=== PATIENT | female | born 1970 | race Caucasian/White ===

== ENCOUNTER 2016-05-13 20:17 | Emergency (ER) | payer OTHER ==
--- NOTE | 2016-05-13 22:03 | DIAGNOSTIC IMAGING REPORT ---
PROCEDURE: XR CHEST 2 VIEW INDICATION: COUGH TECHNIQUE: PA and lateral views. COMPARISON: Compared to chest x-ray on 09/27/2013. FINDINGS: Lungs are clear. Heart and mediastinum are normal. Thorax is normal. IMPRESSION: 1. Negative chest.
--- NOTE | 2016-05-13 22:28 | ED ORDER SUMMARY ---
..... Patient: FRANCISCO MUNOZ OrderSheet [facility] VisitID: [id number] [place] [address] 45y, F Registration Date/Time: 05/13/2016 ORDER SHEET Weight: 77.1 kg (stated) Allergies: No Known Drug Allergy GENERAL ORDERS: EKG - ER Stat (20:35 05/13/2016 Chet R.N. per protocol) (Ack 20:44 NHouse ER Tech1) (20:48 LMuller) Chest 2V Urgent (20:37 05/13/2016 EKoroleva P.A.-C) (Ack 20:44 NHouse ER Tech1) (20:49 LMuller) CBC w Diff Urgent (20:58 05/13/2016 EKoroleva P.A.-C) (Ack 21:28 NHouse ER Tech1) (21:43 JQuivey R.N.) BMP Urgent (20:58 05/13/2016 EKoroleva P.A.-C) (Ack 21:28 NHouse ER Tech1) (21:43 JQuivey R.N.) Troponin-I Urgent (22:02 05/13/2016 EKoroleva P.A.-C) (22:07 LMuller) MEDICATION ORDERS: Levaquin PO 750 mg (NOW) (22:27 05/13/2016 EKoroleva P.A.-C) (Ack 22:56 JQuivey R.N.) Tylenol w Codeine PO 2 tabs (HIGH ALERT MEDICATION, NOW) (22:27 05/13/2016 EKoroleva P.A.-C) (Ack 22:56 JQuivey R.N.) IV FLUIDS: ORDER SHEET NOTES: [Electronically signed by Marek Rosales R.N. (02:23 05/14/2016)] [Electronically signed by Sharon Armas P.A.-C (13:45 05/14/2016)] [Electronically locked/signed by Marek Rosales R.N. (02:23 05/14/2016)]
--- NOTE | 2016-05-13 22:28 | ED NURSING NOTES ---
Clinical Report - Nurses [facility] [address] [place] [address] 05/13/2016 20:19 Patient: FRANCISCO MUNOZ TRIAGE Triage time 20:May 13 2016. Acuity: LEVEL 3. Chief Complaint: CHEST PAIN and DISCOMFORT. Alert. No acute distress. --20:35 Tana Nuñez R.N. 20:29 05/13/16. BP: 136/100. HR: 95. RR: 18. O2 saturation: 96%. Temp: 98.3 F. Pain level now 8/10. --20:35 Tana Nuñez R.N. Weight: 77.1 kg stated. Height/Length: 66 inches Per Patient. BMI: 27.4. --20:28 Tana Nuñez R.N. Medications Ambien Oral 10 mg, daily. Amitriptyline HCl Oral 50 mg, daily. --20:32 Tana Nuñez R.N. Adderall Oral. --20:33 Tana Nuñez R.N. Medication/allergy information source: the patient. --20:35 Tana Nuñez R.N. Allergies No Known Drug Allergy. --20:32 Tana Nuñez R.N. History Arrived by private vehicle, and accompanied by friend. Primary physician (Francisco Sánchez). ( Pt had Pneumonia. Dx 11 days ago via [facility], took Zpack. No relief. Called to follow up however PCP could not get her in. Would not renew the Z Pack without being seen again. Pt here because she has chest discomfort with breathing.). Onset. (11 days). Treatment STRAPPING MACHINE TENDER: None. SOCIAL HX: Smoker- current status unknown. History of drug use: marijuana. No alcohol use. NUTRITIONAL RISK ASSESSMENT: The nutritional risk assessment revealed no deficiencies. --20:35 Tana Nuñez R.N. PROBLEMS: Cancer. Tetanus Status. Contusion. Abrasion(s). Atypical Chest Pain. Chest Pain. Hypotension. Immunizations. LNMP - Last Normal Menstrual Period. Abdominal Pain. Pneumonia. Substance Abuse. Hearing Loss. --20:33 Tana Nuñez R.N. ADDITIONAL SURGERIES: Head. --20:33 Tana Nuñez R.N. Interventions ID band on patient. To room. --20:35 Tana Nuñez R.N. PHYSICAL ASSESSMENT Ambulatory to room. GENERAL / NEURO / PSYCH: Appears anxious. SKIN: Skin is warm and dry. --20:36 Tana Nuñez R.N. 21:21. To room via wheelchair. GENERAL / NEURO / PSYCH: Alert. Oriented X 4. HEENT: Mucous membranes are pink. RESPIRATORY: Respirations not labored. SKIN: Skin is warm and dry. Normal skin turgor. --21:21 Marek Rosales R.N. NURSING PROGRESS NOTES ( EKG in triage room.). --20:36 Tana Nuñez R.N. EKG time: (2048). EKG was performed by a tech and shown to the PA. --20:49 Thais Foley ( patient taken to x-ray by tech). --20:49 Thais Foley The patient is calm and resting quietly. RESPIRATORY: No respiratory distress. --21:23 Marek Rosales R.N. 21:21 05/13/16. BP: 113/76. HR: 77. RR: 16. O2 saturation: 98%. Pain level now: 10. --21:23 Marek Rosales R.N. 21:30. Patient ID band checked for patient name and birthdate: patient confirmed. Blood samples drawn from the right wrist with syringe by nurse ; labeled in presence of the patient and sent to lab: rainbow set. --21:31 Marek Rosales R.N. 23:02. The patient is calm and resting quietly. RESPIRATORY: No respiratory distress. SKIN: Skin is warm and dry. Skin color within normal limits. --02:22 Marek Rosales R.N. DISPOSITION / DISCHARGE Departure time: 23:05. Condition at departure: stable. No learning barriers present. Discharge instructions provided and reviewed with the patient. Reviewed medication(s) side effects, precautions, dosing and course information. Prescription(s) given to the patient. Patient verbalized understanding. Written instructions provided in Croatian. The patient was discharged home and accompanied by plug maker. She left the Emergency Department ambulatory and via private vehicle. Genetic Counselor driving. FALL RISK ASSESSMENT: Fall risk assessment completed. No fall risk identified. --23:05 Marek Rosales R.N. 22:58 05/13/16. BP: 110/80. --23:05 Marek Rosales R.N. 22:58 05/13/16. HR: 72. RR: 17. O2 saturation: 97% on room air. Pain level now: 10/12. --23:06 Marek Rosales R.N. Locked/Released at 05/14/2016 2:23 by Marek Rosales R.N.
--- NOTE | 2016-05-13 22:28 | ED NURSING NOTES ---
Clinical Report - Nurses [facility] [address] [place] [address] 05/13/2016 20:19 Patient: FRANCISCO MUNOZ TRIAGE Triage time 20:May 13 2016. Acuity: LEVEL 3. Chief Complaint: CHEST PAIN and DISCOMFORT. Alert. No acute distress. --20:35 Tana Nuñez R.N. 20:29 05/13/16. BP: 136/100. HR: 95. RR: 18. O2 saturation: 96%. Temp: 98.3 F. Pain level now 8/10. --20:35 Tana Nuñez R.N. Weight: 77.1 kg stated. Height/Length: 66 inches Per Patient. BMI: 27.4. --20:28 Tana Nuñez R.N. Medications Ambien Oral 10 mg, daily. Amitriptyline HCl Oral 50 mg, daily. --20:32 Tana Nuñez R.N. Adderall Oral. --20:33 Tana Nuñez R.N. Medication/allergy information source: the patient. --20:35 Tana Nuñez R.N. Allergies No Known Drug Allergy. --20:32 Tana Nuñez R.N. History Arrived by private vehicle, and accompanied by friend. Primary physician (Francisco Sánchez). ( Pt had Pneumonia. Dx 11 days ago via [facility], took Zpack. No relief. Called to follow up however PCP could not get her in. Would not renew the Z Pack without being seen again. Pt here because she has chest discomfort with breathing.). Onset. (11 days). Treatment HEALTHCARE ADMINISTRATOR: None. SOCIAL HX: Smoker- current status unknown. History of drug use: marijuana. No alcohol use. NUTRITIONAL RISK ASSESSMENT: The nutritional risk assessment revealed no deficiencies. --20:35 Tana Nuñez R.N. PROBLEMS: Cancer. Tetanus Status. Contusion. Abrasion(s). Atypical Chest Pain. Chest Pain. Hypotension. Immunizations. LNMP - Last Normal Menstrual Period. Abdominal Pain. Pneumonia. Substance Abuse. Hearing Loss. --20:33 Tana Nuñez R.N. ADDITIONAL SURGERIES: Head. --20:33 Tana Nuñez R.N. Interventions ID band on patient. To room. --20:35 Tana Nuñez R.N. PHYSICAL ASSESSMENT Ambulatory to room. GENERAL / NEURO / PSYCH: Appears anxious. SKIN: Skin is warm and dry. --20:36 Tana Nuñez R.N. 21:21. To room via wheelchair. GENERAL / NEURO / PSYCH: Alert. Oriented X 4. HEENT: Mucous membranes are pink. RESPIRATORY: Respirations not labored. SKIN: Skin is warm and dry. Normal skin turgor. --21:21 Marek Rosales R.N. NURSING PROGRESS NOTES ( EKG in triage room.). --20:36 Tana Nuñez R.N. EKG time: (2048). EKG was performed by a tech and shown to the PA. --20:49 Thais Foley ( patient taken to x-ray by tech). --20:49 Thais Foley The patient is calm and resting quietly. RESPIRATORY: No respiratory distress. --21:23 Marek Rosales R.N. 21:21 05/13/16. BP: 113/76. HR: 77. RR: 16. O2 saturation: 98%. Pain level now: 10. --21:23 Marek Rosales R.N. 21:30. Patient ID band checked for patient name and birthdate: patient confirmed. Blood samples drawn from the right wrist with syringe by nurse ; labeled in presence of the patient and sent to lab: rainbow set. --21:31 Marek Rosales R.N. 23:02. The patient is calm and resting quietly. RESPIRATORY: No respiratory distress. SKIN: Skin is warm and dry. Skin color within normal limits. --02:22 Marek Rosales R.N. DISPOSITION / DISCHARGE Departure time: 23:05. Condition at departure: stable. No learning barriers present. Discharge instructions provided and reviewed with the patient. Reviewed medication(s) side effects, precautions, dosing and course information. Prescription(s) given to the patient. Patient verbalized understanding. Written instructions provided in Japanese. The patient was discharged home and accompanied by gymnastics instructor. She left the Emergency Department ambulatory and via private vehicle. International Bank Manager driving. FALL RISK ASSESSMENT: Fall risk assessment completed. No fall risk identified. --23:05 Marek Rosales R.N. 22:58 05/13/16. BP: 110/80. --23:05 Marek Rosales R.N. 22:58 05/13/16. HR: 72. RR: 17. O2 saturation: 97% on room air. Pain level now: 10/12. --23:06 Marek Rosales R.N. Locked/Released at 05/14/2016 2:23 by Marek Rosales R.N.
--- NOTE | 2016-05-13 22:28 | ED CLINICAL REPORT ---
Clinical Report - Physicians/Mid Levels [facility] [address] [place] [address] 05/13/2016 20:19 Patient: FRANCISCO MUNOZ Time Seen: 20:42 May 13 2016. Arrived- By private vehicle. Historian- patient. HISTORY OF PRESENT ILLNESS Chief Complaint: COUGH. This started 11 days and is still present. The patient has had a cough. (consistent illness for the last 11 days, with cough, chills, pain to the right side of the chest ongoing. Patient with recent treatment of azithromycin completed such yesterday, was supposed to continue taking such, however did not have a prescription for, and unable to see her primary care provider this week. No new symptoms. However no real improvement of symptoms either.). REVIEW OF SYSTEMS No skin rash or enlarged lymph nodes. All systems otherwise negative, except as recorded above. SOCIAL HISTORY History of drug use: marijuana. No alcohol use. ADDITIONAL NOTES The nursing notes have been reviewed. PHYSICAL EXAM Vital Signs: 05/13/2016 20:29 BP: 136/100. HR: 95. RR: 18. O2 saturation: 96%. Temp: 98.3 F. Appearance: Alert. ENT: Ears normal. Pharynx normal. Uvula midline. Neck: Normal inspection. No lymphadenopathy. CVS: Normal heart rate and rhythm. Heart sounds normal. Respiratory: No respiratory distress. Rhonchi present. Abdomen: Soft. Back: Normal inspection. No CVA tenderness. Skin: Skin warm. Normal skin color. Neuro: Oriented X 3. LABS, X-RAYS, AND EKG EKG: EKG time: (2048). No acute process. No acute ischemia. Normal EKG. Rate: 83. Normal P waves. Normal JULIANA. Normal QRS complex. Normal axis. Normal ST and T waves. The study has been interpreted contemporaneously. The EKG appears to be a good tracing. Chest X-ray: (IMPRESSION: 1. Negative chest. Electronically Final signed by:Ti Orozco MD 05/13/2016 10:01:56 PM). Laboratory Tests: CBC w Diff: (REYNOLD: 05/13/2016 21:30) ( MsgRcvd 05/13/2016 21:43) Final results Test Result Flag Units (Reference) WHITE BLOOD COUNT 8.8 K/uL (4.5-11.5) RED BLOOD COUNT 4.51 M/uL (4.00-5.20) HEMOGLOBIN 13.3 gm/dL (12.0-16.0) HEMATOCRIT 40.5 % (36.0-46.0) MEAN CELL VOLUME 90 fL (80-100) MEAN CORPUSCULAR HGB 30 pg (26-34) MEAN CORPUSCULAR HGB CONC 33 g/dL (31-37) RED CELL DISTRIBUTION WIDTH 13.3 % (11.6-14.8) PLATELET COUNT 349 K/uL (150-400) NEUTROPHIL % 55.4 % (50-75) LYMPH % 35.3 % (25-40) MONO % 8.2 % (3-14) EOSINOPHIL % 0 % (0-4) BASOPHIL % 1.1 % (0-2) BMP: (REYNOLD: 05/13/2016 21:30) ( MsgRcvd 05/13/2016 21:50) Final results Test Result Flag Units (Reference) GLUCOSE 92 mg/dL (70-110) BUN 15 mg/dL (7-18) CREATININE 0.7 mg/dL (0.6-1.3) Estimated GFR >60 mL/min Estimated GFR- >60 mL/min Note: Persistent reduction over 3 months in eGFR<60 mL/min/1.73 m2 defines CKD. Patients with eGFR values>=60 mL/min/1.73 m2 may also have CKD if evidence ofpersistent proteinuria. Additional information may be foundat www.kidney.org. SODIUM 141 mmol/L (136-145) POTASSIUM 3.9 mmol/L (3.5-5.1) CHLORIDE 107 mmol/L (98-107) CARBON DIOXIDE 28 mmol/L (21-32) CALCIUM 8.7 mg/dL (8.5-10.1) . PROGRESS AND PROCEDURES Course of Care: 05/13/2016 22:58 BP: 110/80. 05/13/2016 22:58 HR: 72. RR: 17. O2 saturation: 97%. Pain level now: 10/12. 05/13/2016 21:21 BP: 113/76. HR: 77. RR: 16. O2 saturation: 98%. Pain level now: 11/11. Patient is stable. Physical exam findings are improved. Symptoms better. Patient/family counseled. Disposition: Discharged. CLINICAL IMPRESSION Acute bronchitis. INSTRUCTIONS Drink plenty of fluids. Prescription Medications: Robitussin A-C cough syrup take one (1) teaspoon orally every 6 hours as needed for cough for 3 days. Dispense sixty (60) mL. No refill. Substitution is permissible. Levaquin 750 mg: take 1 tab orally every day for 6 days. No refills. Substitution is permissible. (start this on the ) Motrin 800 mg tablets: take 1 tablet orally every 8 hours for 3 days, as needed for pain. Dispense ten (10). No refill. Substitution is permissible. Follow-up: Follow up with your doctor as needed. (Electronically signed by Sharon Armas P.A.-C 05/14/2016 13:45)
--- NOTE | 2016-05-13 22:28 | ED ORDER SUMMARY ---
..... Patient: FRANCISCO MUNOZ OrderSheet [facility] VisitID: [id number] [place] [address] 45y, F Registration Date/Time: 05/13/2016 ORDER SHEET Weight: 77.1 kg (stated) Allergies: No Known Drug Allergy GENERAL ORDERS: EKG - ER Stat (20:35 05/13/2016 Chet R.N. per protocol) (Ack 20:44 NHouse ER Tech1) (20:48 LMuller) Chest 2V Urgent (20:37 05/13/2016 EKoroleva P.A.-C) (Ack 20:44 NHouse ER Tech1) (20:49 LMuller) CBC w Diff Urgent (20:58 05/13/2016 EKoroleva P.A.-C) (Ack 21:28 NHouse ER Tech1) (21:43 JQuivey R.N.) BMP Urgent (20:58 05/13/2016 EKoroleva P.A.-C) (Ack 21:28 NHouse ER Tech1) (21:43 JQuivey R.N.) Troponin-I Urgent (22:02 05/13/2016 EKoroleva P.A.-C) (22:07 LMuller) MEDICATION ORDERS: Levaquin PO 750 mg (NOW) (22:27 05/13/2016 EKoroleva P.A.-C) (Ack 22:56 JQuivey R.N.) Tylenol w Codeine PO 2 tabs (HIGH ALERT MEDICATION, NOW) (22:27 05/13/2016 EKoroleva P.A.-C) (Ack 22:56 JQuivey R.N.) IV FLUIDS: ORDER SHEET NOTES: [Electronically signed by Marek Rosales R.N. (02:23 05/14/2016)] [Electronically signed by Sharon Armas P.A.-C (13:45 05/14/2016)] [Electronically locked/signed by Marek Rosales R.N. (02:23 05/14/2016)]
--- NOTE | 2016-05-14 13:45 | ED MED RECONCILIATION SUMMARY ---
Patient: FRANCISCO MUNOZ Medication Reconciliation Report [facility] VisitID: [id number] [place] [address] 45y, F Registration Date/Time: 05/13/2016 Weight: 77.1 kg Height/Length: 66 in. BMI: 27.4 ALLERGIES: No Known Drug Allergy The patient's Home Medications are listed below: THE FOLLOWING MEDICATIONS NEED TO BE RECONCILED: Adderall Oral Ambien Oral 10 mg, daily Amitriptyline HCl Oral 50 mg, daily The source(s) of the original Home Medication information: patient The following Medications were given to the patient in the Emergency Department: None. The following Medications were prescribed to the patient: Robitussin A-C cough syrup take one (1) teaspoon orally every 6 hours as needed for cough for 3 days. Dispense sixty (60) mL. No refill. Substitution is permissible. -- Sharon Armas, P.A.-[place] Levaquin 750 mg: take 1 tab orally every day for 6 days. No refills. Substitution is permissible.(start this on the ) -- Sharon Armas, P.A.-[place] Motrin 800 mg tablets: take 1 tablet orally every 8 hours for 3 days, as needed for pain. Dispense ten (10). No refill. Substitution is permissible. -- Sharon Armas P.A.-C
--- NOTE | 2016-05-14 13:45 | ED MAR SUMMARY ---
..... Medication Administration Record [facility] [address] [place] [address] Patient: FRANCISCO MUNOZ Visit ID: [id number] 45y, F Weight: 77.1 kg Height/Length: 66 in BMI: 27.4 ALLERGIES: No Known Drug Allergy
--- NOTE | 2016-05-14 13:45 | ED MAR SUMMARY ---
..... Medication Administration Record [facility] [address] [place] [address] Patient: FRANCISCO MUNOZ Visit ID: [id number] 45y, F Weight: 77.1 kg Height/Length: 66 in BMI: 27.4 ALLERGIES: No Known Drug Allergy
--- NOTE | 2016-05-14 13:45 | ED DISCHARGE INSTRUCTIONS ---
Patient: FRANCISCO MUNOZ General Instructions [facility] VisitID: [id number] [place] [address] 45y, F Registration Date/Time: 05/13/2016 Acute bronchitis. INSTRUCTIONS Drink plenty of fluids. Prescription Medications: Robitussin A-C cough syrup take one (1) teaspoon orally every 6 hours as needed for cough for 3 days. Dispense sixty (60) mL. No refill. Substitution is permissible. Levaquin 750 mg: take 1 tab orally every day for 6 days. No refills. Substitution is permissible. (start this on the ) Motrin 800 mg tablets: take 1 tablet orally every 8 hours for 3 days, as needed for pain. Dispense ten (10). No refill. Substitution is permissible. Follow-up: Follow up with your doctor as needed. ADDITIONAL INFORMATION Bronchitis (Adult: Abx Tx) BRONCHITIS is an infection of the air passages (bronchial tubes). It often occurs during the common cold. Symptoms include cough with mucus (phlegm) and low-grade fever. Bronchitis usually lasts 7-14 days. Mild cases can be treated with simple home remedies. More severe infection is treated with an antibiotic. Home Care: If symptoms are severe, rest at home for the first 2-3 days. When you resume activity, don't let yourself get too tired. Do not smoke. Avoid being exposed to the smoke of others. You may use acetaminophen (Tylenol) or ibuprofen (Motrin, Advil) to control fever or pain, unless another medicine was prescribed for this. [NOTE: If you have chronic liver or kidney disease or ever had a stomach ulcer or GI bleeding, talk with your doctor before using these medicines.] Your appetite may be poor, so a light diet is fine. Avoid dehydration by drinking 6-8 glasses of fluids per day (water, soft, drinks, juices, tea, soup, etc.). Extra fluids will help loosen secretions in the lungs. Tcey-kzc-yksvbpm cough medicines that containdextromethorphan(such as Robitussin DM) and decongestants (Actifed or Sudafed) may help relieve cough and congestion. [NOTE: Do not use decongestants if you have high blood pressure.] Finish all antibiotic medicine, even if you are feeling better after only a few days. Follow Up with your doctor or as directed if you dont start to feel better after three days. [NOTE: If you are age 65 or older, or if you have chronic asthma or COPD, we recommend a PNEUMOCOCCAL VACCINATION every five years and a yearly INFLUENZAVACCINATION (FLU-SHOT) every . Ask your doctor about this. If you had an X-ray, a radiologist will review it. You will be notified of any new findings that may affect your care.] Get Prompt Medical Attention if any of the following occur: Fever over 100.4F (38.0C) for more than three days Trouble breathing, wheezing or pain with breathing Coughing up blood or increased amounts of colored sputum Weakness, drowsiness, headache, facial pain, ear pain or a stiff neck Levofloxacin Oral tablet What is this medicine? LEVOFLOXACIN (liz wheat) is a quinolone antibiotic. It is used to treat certain kinds of bacterial infections. It will not work for colds, flu, or other viral infections. How should I use this medicine? Take this medicine by mouth with a full glass of water. Follow the directions on the prescription label. This medicine can be taken with or without food. Take your medicine at regular intervals. Do not take your medicine more often than directed. Do not skip doses or stop your medicine early even if you feel better. Do not stop taking except on your doctor's advice. A special MedGuide will be given to you by the pharmacist with each prescription and refill. Be sure to read this information carefully each time. Talk to your grain drier operator regarding the use of this medicine in children. While this drug may be prescribed for children as young as 6 months for selected conditions, precautions do apply. What side effects may I notice from receiving this medicine? Side effects that you should report to your doctor or health daycare provider as soon as possible: -allergic reactions like skin rash or hives, swelling of the face, lips, or tongue -changes in vision -confusion, nightmares or hallucinations -difficulty breathing -irregular heartbeat, chest pain -joint, muscle or tendon pain -pain or difficulty passing urine -persistent headache with or without blurred vision -redness, blistering, peeling or loosening of the skin, including inside the mouth -seizures -unusual pain, numbness, tingling, or weakness -vaginal irritation, discharge Side effects that usually do not require medical attention (report to your doctor or health daycare provider if they continue or are bothersome): -diarrhea -dry mouth -headache -stomach upset, nausea -trouble sleeping What may interact with this medicine? Do not take this medicine with any of the following medications: - arsenic trioxide - chloroquine - droperidol - medicines for irregular heart rhythm like amiodarone, disopyramide, dofetilide, flecainide, quinidine, procainamide, sotalol - some medicines for depression or mental problems like phenothiazines, pimozide, and ziprasidone This medicine may also interact with the following medications: - amoxapine -antacids - cisapride - dairy products - didanosine (ddI) buffered tablets or powder - haloperidol - multivitamins -NSAIDS, medicines for pain and inflammation, like ibuprofen or naproxen - retinoid products like tretinoin or isotretinoin - risperidone - some other antibiotics like clarithromycin or erythromycin - sucralfate - theophylline - warfarin What if I miss a dose? If you miss a dose, take it as soon as you remember. If it is almost time for your next dose, take only that dose. Do not take double or extra doses. Where should I keep my medicine? Keep out of the reach of children. Store at room temperature between 15 and 30 degrees C (59 and 86 degrees F). Keep in a tightly closed container. Throw away any unused medicine after the expiration date. What should I tell my health care provider before I take this medicine? They need to know if you have any of these conditions: cerebral disease irregular heartbeat kidney disease seizure disorder an unusual or allergic reaction to levofloxacin, other antibiotics or medicines, foods, dyes, or preservatives or trying to get breast-feeding What should I watch for while using this medicine? Tell your doctor or health daycare provider if your symptoms do not improve or if they get worse. Drink several glasses of water a day and cut down on drinks that contain caffeine. You must not get dehydrated while taking this medicine. You may get drowsy or dizzy. Do not drive, use machinery, or do anything that needs mental alertness until you know how this medicine affects you. Do not sit or stand up quickly, especially if you are an older patient. This reduces the risk of dizzy or fainting spells. This medicine can make you more sensitive to the sun. Keep out of the sun. If you cannot avoid being in the sun, wear protective clothing and use a sunscreen. Do not use sun lamps or tanning beds/booths. Contact your doctor if you get a sunburn. If you are a diabetic monitor your blood glucose carefully. If you get an unusual reading stop taking this medicine and call your doctor right away. Do not treat diarrhea with [id number] products. Contact your doctor if you have diarrhea that lasts more than 2 days or if the diarrhea is severe and watery. Avoid antacids, calcium, iron, and zinc products for 2 hours before and 2 hours after taking a dose of this medicine. You have been given the following additional information: Bronchitis, Antiobiotic Treatment (Adult) Levofloxacin Oral tablet (Electronically signed by Sharon Armas P.A.-C 05/14/2016 13:45)
--- NOTE | 2016-05-14 13:45 | ED DISCHARGE INSTRUCTIONS ---
Patient: FRANCISCO MUNOZ General Instructions [facility] VisitID: [id number] [place] [address] 45y, F Registration Date/Time: 05/13/2016 Acute bronchitis. INSTRUCTIONS Drink plenty of fluids. Prescription Medications: Robitussin A-C cough syrup take one (1) teaspoon orally every 6 hours as needed for cough for 3 days. Dispense sixty (60) mL. No refill. Substitution is permissible. Levaquin 750 mg: take 1 tab orally every day for 6 days. No refills. Substitution is permissible. (start this on the ) Motrin 800 mg tablets: take 1 tablet orally every 8 hours for 3 days, as needed for pain. Dispense ten (10). No refill. Substitution is permissible. Follow-up: Follow up with your doctor as needed. ADDITIONAL INFORMATION Bronchitis (Adult: Abx Tx) BRONCHITIS is an infection of the air passages (bronchial tubes). It often occurs during the common cold. Symptoms include cough with mucus (phlegm) and low-grade fever. Bronchitis usually lasts 7-14 days. Mild cases can be treated with simple home remedies. More severe infection is treated with an antibiotic. Home Care: If symptoms are severe, rest at home for the first 2-3 days. When you resume activity, don't let yourself get too tired. Do not smoke. Avoid being exposed to the smoke of others. You may use acetaminophen (Tylenol) or ibuprofen (Motrin, Advil) to control fever or pain, unless another medicine was prescribed for this. [NOTE: If you have chronic liver or kidney disease or ever had a stomach ulcer or GI bleeding, talk with your doctor before using these medicines.] Your appetite may be poor, so a light diet is fine. Avoid dehydration by drinking 6-8 glasses of fluids per day (water, soft, drinks, juices, tea, soup, etc.). Extra fluids will help loosen secretions in the lungs. Area-zcq-atmcsto cough medicines that containdextromethorphan(such as Robitussin DM) and decongestants (Actifed or Sudafed) may help relieve cough and congestion. [NOTE: Do not use decongestants if you have high blood pressure.] Finish all antibiotic medicine, even if you are feeling better after only a few days. Follow Up with your doctor or as directed if you dont start to feel better after three days. [NOTE: If you are age 65 or older, or if you have chronic asthma or COPD, we recommend a PNEUMOCOCCAL VACCINATION every five years and a yearly INFLUENZAVACCINATION (FLU-SHOT) every . Ask your doctor about this. If you had an X-ray, a radiologist will review it. You will be notified of any new findings that may affect your care.] Get Prompt Medical Attention if any of the following occur: Fever over 100.4F (38.0C) for more than three days Trouble breathing, wheezing or pain with breathing Coughing up blood or increased amounts of colored sputum Weakness, drowsiness, headache, facial pain, ear pain or a stiff neck Levofloxacin Oral tablet What is this medicine? LEVOFLOXACIN (liz wheat) is a quinolone antibiotic. It is used to treat certain kinds of bacterial infections. It will not work for colds, flu, or other viral infections. How should I use this medicine? Take this medicine by mouth with a full glass of water. Follow the directions on the prescription label. This medicine can be taken with or without food. Take your medicine at regular intervals. Do not take your medicine more often than directed. Do not skip doses or stop your medicine early even if you feel better. Do not stop taking except on your doctor's advice. A special MedGuide will be given to you by the pharmacist with each prescription and refill. Be sure to read this information carefully each time. Talk to your manager utilities regarding the use of this medicine in children. While this drug may be prescribed for children as young as 6 months for selected conditions, precautions do apply. What side effects may I notice from receiving this medicine? Side effects that you should report to your doctor or health home health aide caregiver as soon as possible: -allergic reactions like skin rash or hives, swelling of the face, lips, or tongue -changes in vision -confusion, nightmares or hallucinations -difficulty breathing -irregular heartbeat, chest pain -joint, muscle or tendon pain -pain or difficulty passing urine -persistent headache with or without blurred vision -redness, blistering, peeling or loosening of the skin, including inside the mouth -seizures -unusual pain, numbness, tingling, or weakness -vaginal irritation, discharge Side effects that usually do not require medical attention (report to your doctor or health home health aide caregiver if they continue or are bothersome): -diarrhea -dry mouth -headache -stomach upset, nausea -trouble sleeping What may interact with this medicine? Do not take this medicine with any of the following medications: - arsenic trioxide - chloroquine - droperidol - medicines for irregular heart rhythm like amiodarone, disopyramide, dofetilide, flecainide, quinidine, procainamide, sotalol - some medicines for depression or mental problems like phenothiazines, pimozide, and ziprasidone This medicine may also interact with the following medications: - amoxapine -antacids - cisapride - dairy products - didanosine (ddI) buffered tablets or powder - haloperidol - multivitamins -NSAIDS, medicines for pain and inflammation, like ibuprofen or naproxen - retinoid products like tretinoin or isotretinoin - risperidone - some other antibiotics like clarithromycin or erythromycin - sucralfate - theophylline - warfarin What if I miss a dose? If you miss a dose, take it as soon as you remember. If it is almost time for your next dose, take only that dose. Do not take double or extra doses. Where should I keep my medicine? Keep out of the reach of children. Store at room temperature between 15 and 30 degrees C (59 and 86 degrees F). Keep in a tightly closed container. Throw away any unused medicine after the expiration date. What should I tell my health care provider before I take this medicine? They need to know if you have any of these conditions: cerebral disease irregular heartbeat kidney disease seizure disorder an unusual or allergic reaction to levofloxacin, other antibiotics or medicines, foods, dyes, or preservatives or trying to get breast-feeding What should I watch for while using this medicine? Tell your doctor or health home health aide caregiver if your symptoms do not improve or if they get worse. Drink several glasses of water a day and cut down on drinks that contain caffeine. You must not get dehydrated while taking this medicine. You may get drowsy or dizzy. Do not drive, use machinery, or do anything that needs mental alertness until you know how this medicine affects you. Do not sit or stand up quickly, especially if you are an older patient. This reduces the risk of dizzy or fainting spells. This medicine can make you more sensitive to the sun. Keep out of the sun. If you cannot avoid being in the sun, wear protective clothing and use a sunscreen. Do not use sun lamps or tanning beds/booths. Contact your doctor if you get a sunburn. If you are a diabetic monitor your blood glucose carefully. If you get an unusual reading stop taking this medicine and call your doctor right away. Do not treat diarrhea with [id number]-[id number] products. Contact your doctor if you have diarrhea that lasts more than 2 days or if the diarrhea is severe and watery. Avoid antacids, calcium, iron, and zinc products for 2 hours before and 2 hours after taking a dose of this medicine. You have been given the following additional information: Bronchitis, Antiobiotic Treatment (Adult) Levofloxacin Oral tablet (Electronically signed by Sharon Armas P.A.-C 05/14/2016 13:45)
--- NOTE | 2016-05-14 13:45 | ED MED RECONCILIATION SUMMARY ---
Patient: FRANCISCO MUNOZ Medication Reconciliation Report [facility] VisitID: [id number] [place] [address] 45y, F Registration Date/Time: 05/13/2016 Weight: 77.1 kg Height/Length: 66 in. BMI: 27.4 ALLERGIES: No Known Drug Allergy The patient's Home Medications are listed below: THE FOLLOWING MEDICATIONS NEED TO BE RECONCILED: Adderall Oral Ambien Oral 10 mg, daily Amitriptyline HCl Oral 50 mg, daily The source(s) of the original Home Medication information: patient The following Medications were given to the patient in the Emergency Department: None. The following Medications were prescribed to the patient: Robitussin A-C cough syrup take one (1) teaspoon orally every 6 hours as needed for cough for 3 days. Dispense sixty (60) mL. No refill. Substitution is permissible. -- Sharon Armas, P.A.-[place] Levaquin 750 mg: take 1 tab orally every day for 6 days. No refills. Substitution is permissible.(start this on the ) -- Sharon Armas, P.A.-[place] Motrin 800 mg tablets: take 1 tablet orally every 8 hours for 3 days, as needed for pain. Dispense ten (10). No refill. Substitution is permissible. -- Sharon Armas P.A.-C
== END 2016-05-13 23:05 | disposition home or self-care (01) ==
LOC: ED SRH 20:17
DX: J20.9 Acute bronchitis, unspecified (principal)
CPT/HCPCS: 90047; 90616; 95059